=== PATIENT | male | born 1970 | race Caucasian/White ===

== ENCOUNTER 2021-09-19 19:06 | Emergency (ER) | payer OTHER ==
[~2021-09-19] VITALS: Ht 170.2 cm; Wt 79.0 kg
[2021-09-19 19:10] VITALS: BP 192/103
[2021-09-19] MEDS ORDERED: AMLO5TAB88 MT (19:42)
[2021-09-19] MEDS ORDERED: AMLODIPINE 5MG TABLET PO ONE (19:45)
== END 2021-09-19 19:55 | disposition home or self-care (01) ==
LOC: ER 19:06
DX: I10 Essential (primary) hypertension (principal); F15.10 Other stimulant abuse, uncomplicated
CPT/HCPCS: 93005; 99283